=== PATIENT | female | born 1930 | race Caucasian/White ===

== ENCOUNTER 2018-04-05 12:03 | Day surgery (SDC) | payer MEDICARE, BC ==
[~2018-04-05 12:03] MED LIST: GLYCOPYRROLATE 1 MG/5 ML SYRINGE IV PUSH; LIDOCAINE HCL 1% PF 5 ML SYRINGE OTHER; METOPROLOL TARTRATE 5 MG/5 ML VIAL IV; NEOSTIGMINE 5 MG/5 ML SYRINGE IV PUSH; ONDANSETRON HCL 4 MG/2 ML VIAL IV; PHENYLEPH/NS 1000 MCG/10 ML SYR IV; PROPOFOL 200 MG/20 ML AMP IV; ROCURONIUM INJ 50 MG/5 ML SYRINGE IV PUSH; ePHEDrine/NS 25 MG/5 ML SYRINGE IV
[2018-04-05] MEDS ORDERED: HEPARIN-NS/PF FLUSH BAG 2,000 ML IV FLUSH (12:28)
[2018-04-05] MEDS ORDERED: CHLORHEXIDINE GLUCONATE 2 % 1 PACK (2 CLOTHS) TOPICAL (13:30)
[2018-04-05] MEDS ORDERED: POVIDONE IODINE 5% (ANTISEPSIS KIT) 4 APPLICATIONS EACH NARE (13:30)
[2018-04-05] MEDS: LEVOFLOXACIN 500 MG PREMIX INJ 100 ML IV (13:30)
[2018-04-05] MEDS ORDERED: INSULIN HUMAN REGULAR 1,000 UNITS/10 ML VIAL SQ (13:30)
[2018-04-05] MEDS ORDERED: SODIUM CHLORID 0.9% 500 ML IV (13:30)
[2018-04-05] MEDS ORDERED: LACTATED RINGER'S 1000 ML IV (13:30)
[2018-04-05] MEDS ORDERED: METOPROLOL TARTRATE 25 MG TAB PO (13:30)
[2018-04-05] MEDS ORDERED: LORazepam 1 MG TAB SL (13:30)
[2018-04-05] MEDS ORDERED: ISOPROTERENOL INJ PREMIX 50 ML IV (13:53)
[2018-04-05] MEDS ORDERED: HEPARIN SODIUM - IV 10,000 UNITS/10 ML VIAL (13:53)
[2018-04-05] MEDS ORDERED: HEPARIN-D5W 25,000 U/250 ML 250 ML (13:53)
[2018-04-05 14:15] LABS: AUTOMATED NEUTROPHIL # 4.6 TH/MM3 (1.8-7.7); BASOPHIL # 0.1 TH/MM3 (0-0.2); EOSINOPHIL # 0.2 TH/MM3 (0-0.4); EOSINOPHIL % 2.1 % (0.0-4.0); HEMATOCRIT 38.3 % (35.0-46.0); HEMO FLAGS DIFF FINAL; HEMOGLOBIN 12.8 GM/DL (11.6-15.3); LYMPH % 25.1 % (9.0-44.0); LYMPHOCYTE # 1.8 TH/MM3 (1.0-4.8); MEAN CELL VOLUME 95.6 FL (80.0-100.0); MEAN CORPUSCULAR HEMOGLOBIN 32.1 PG (27.0-34.0); MEAN CORPUSCULAR HGB CONC 33.6 % (32.0-36.0); MEAN PLATELET VOLUME 9.3 FL (7.0-11.0); MONO % 7.8 % (0.0-8.0); MONOCYTE # 0.6 TH/MM3 (0-0.9); PLATELET COUNT 231 TH/MM3 (150-450); RED CELL DISTRIBUTION WIDTH 13.9 % (11.6-17.2); WHITE BLOOD COUNT 7.2 TH/MM3 (4.0-11.0)
[2018-04-05 14:31] LABS: PROTHROMBIN TIME - PATIENT 10.4 SEC (9.8-11.6)
[2018-04-05 14:35] LABS: ANION GAP 6 MEQ/L (5-15); BICARBONATE 26.7 MEQ/L (21.0-32.0); BLOOD UREA NITROGEN 22 MG/DL (7-18); CHLORIDE 108 MEQ/L (98-107); CREATININE 1.29 MG/DL (0.50-1.00); GLOMERULAR FILTRATION RATE 39 ML/MIN (>89); GLUCOSE,RANDOM 85 MG/DL (74-106); SODIUM (NA) 141 MEQ/L (136-145)
[2018-04-05] MEDS ORDERED: HYDROCORTISONE SOD SUCCINATE 100 MG VIAL (15:08)
[2018-04-05] MEDS ORDERED: ONDANSETRON HCL 4 MG/2 ML VIAL IV PUSH (16:30)
[2018-04-05] MEDS ORDERED: oxyCODONE/ACETAMINOPHEN 5 MG/325 MG TAB PO (16:30)
[2018-04-05] MEDS ORDERED: LIDOCAINE HCL 1% 50 ML VIAL INFIL (16:30)
[2018-04-05] MEDS ORDERED: ATROPINE SULFATE 1 MG/ML VIAL IV PUSH (16:30)
[2018-04-05] MEDS ORDERED: SODIUM CHLOR 0.9% 250 ML INJ 250 ML IV (16:30)
[2018-04-05] MEDS ORDERED: BACITRACIN OINT 0.9 GM PKT TOP (16:30)
[2018-04-05] MEDS ORDERED: PILL SPLITTER OTHER (17:00)
[2018-04-05] MEDS ORDERED: DO NOT ADM ANY ANTICOAGULANT DRUGS (17:11)
[2018-04-05] MEDS: LORazepam 2 MG/ML VIAL IV PUSH (17:45)
[2018-04-05] MEDS ORDERED: HYDROXYCHLOROQUINE SULFATE 200 MG TAB PO (21:00)
[2018-04-05] MEDS: METOPROLOL TARTRATE 25 MG TAB PO (21:00)
[2018-04-06 05:05] LABS: APTT (PATIENT) 24.5 SEC (24.3-30.1); INTERNATIONAL NORMALIZED RATIO 1.1 RATIO; PROTHROMBIN TIME - PATIENT 10.9 SEC (9.8-11.6)
[2018-04-06] MEDS: SODIUM CHLORID 0.9% 500 ML INJ 500 ML IV (06:10)
[2018-04-06] MEDS: RIVAROXABAN 15 MG TAB PO (08:30)
[2018-04-06] MEDS: amLODIPine BESYLATE 5 MG TAB PO (08:30)
[2018-04-06] MEDS: predniSONE 5 MG TAB PO (08:46)
[2018-04-06] MEDS: METOPROLOL TARTRATE 25 MG TAB PO (08:46)
[2018-04-06] MEDS ORDERED: PREDNISONE 2.5 MG PO (09:00)
== END 2018-04-06 09:41 | disposition home or self-care (01) ==
LOC: HDOC 12:03 → HDIC 12:03 → HCVI 21:44
DX: I48.91 Unspecified atrial fibrillation (principal); R00.2 Palpitations; I10 Essential (primary) hypertension; Z01.818 Encounter for other preprocedural examination; Z01.810 Encounter for preprocedural cardiovascular examination
CPT/HCPCS: 00537; 80048; 85002; 85002-91; 85025; 85610; 85730; 86850; 86900; 86901; 93005; 93312; 93320; 93325; 93613; 93623; 93656; 93662

== ENCOUNTER 2018-04-25 19:15 | Emergency (ER) | payer MEDICARE, BC ==
[~2018-04-25 19:15] MED LIST changes: +AMLO5TAB2 PO; -GLYCOPYRROLATE 1 MG/5 ML SYRINGE IV PUSH; +HYDR200T3 PO; -LIDOCAINE HCL 1% PF 5 ML SYRINGE OTHER; +METO25TA3 PO; -METOPROLOL TARTRATE 5 MG/5 ML VIAL IV; -NEOSTIGMINE 5 MG/5 ML SYRINGE IV PUSH; -ONDANSETRON HCL 4 MG/2 ML VIAL IV; -PHENYLEPH/NS 1000 MCG/10 ML SYR IV; +PRED2.5T PO; -PROPOFOL 200 MG/20 ML AMP IV; -ROCURONIUM INJ 50 MG/5 ML SYRINGE IV PUSH; +XARE15TA PO; -ePHEDrine/NS 25 MG/5 ML SYRINGE IV
[2018-04-25 19:17] VITALS: BP 190/79; PULSE 84; RESP 18; TEMP 98.4; O2SAT 98
--- NOTE | 2018-04-25 19:36 | PD ---
HPI Chief Complaint: General Weakness Time Seen by Provider: 19:25 Travel History International Travel<30 days: No Contact w/Intl Traveler<30days: No Traveled to known affect area: No History of Present Illness HPI 87-year-old female with history of A. fib status post ablation 3 weeks ago on Xarelto, PMR on Plaquenil, here with her son and daughter for evaluation of generalized weakness. Symptoms started 3 days ago. At that time the patient was evaluated in the emergency department at [facility] and had an apparently normal workup that consisted of blood work, and a CT of her head. Patient reports that her symptoms are worsening and consists of generalized weakness with intermittent shakiness. She had a nosebleed yesterday. No fevers or chills. She has had a slight nonproductive cough. No chest pain or dyspnea. No abdominal pain. No melena or hematochezia. No urinary symptoms. PFSH Past Medical History Cancer: Yes (BREAST) Cardiovascular Problems: Yes (A-FIB) Chest Pain: No Diabetes: No Diminished Hearing: No Gastrointestinal Disorders: No Glaucoma: No Hiatal Hernia: No Hypertension: Yes Respiratory: No Integumentary: No Immunizations Current: Yes Radiation Therapy: Yes (HX) Thyroid Disease: No Past Surgical History Cardiac Surgery: Yes (ABALATION) Cholecystectomy: Yes Gynecologic Surgery: Yes (LUMPECTOMY LEFT) Social History Alcohol Use: No Tobacco Use: No Substance Use: No Allergies-Medications (Allergen,Severity, Reaction): Coded Allergies: benazepril (Unverified Allergy, Unknown, 04/05/18) captopril (Unverified Allergy, Unknown, 04/05/18) cefepime (Unverified Allergy, Unknown, 04/05/18) ceftaroline fosamil (Unverified Allergy, Unknown, 04/05/18) codeine (Unverified Allergy, Unknown, 04/05/18) enalaprilat (Unverified Allergy, Unknown, 04/05/18) fosinopril (Unverified Allergy, Unknown, 04/05/18) lisinopril (Unverified Allergy, Unknown, 04/05/18) meperidine (Unverified Allergy, Unknown, 04/05/18) morphine (Unverified Allergy, Unknown, 04/05/18) oxycodone (Unverified Allergy, Unknown, 04/05/18) pentazocine (Unverified Allergy, Unknown, 04/05/18) quinapril (Unverified Allergy, Unknown, 04/05/18) Reported Meds & Prescriptions Reported Meds & Active Scripts Active Reported Prednisone 1 Mg Tab 0.5 Mg PO DAILY Clonazepam 0.5 Mg Tab 0.5 Mg PO DAILY Xarelto (Rivaroxaban) 15 Mg Tab 15 Mg PO DAILY Metoprolol Tartrate 25 Mg Tab 25 Mg PO BID Hydroxychloroquine (Hydroxychloroquine Sulfate) 200 Mg Tab 400 Mg PO BID Takw with food Amlodipine (Amlodipine Besylate) 5 Mg Tab 5 Mg PO DAILY Review of Systems Except as stated in HPI: all other systems reviewed are Neg Physical Exam Narrative GENERAL: Well-developed, well-nourished, awake, alert, no apparent distress. SKIN: Focused skin assessment warm/dry. HEAD: Atraumatic. Normocephalic. EYES: Pupils equal and round. No scleral icterus. No injection or drainage. ENT: Mucous membranes pink and moist. NECK: Trachea midline. No JVD. CARDIOVASCULAR: Regular rate and rhythm. RESPIRATORY: No accessory muscle use. Clear to auscultation. Breath sounds equal bilaterally. GASTROINTESTINAL: Abdomen soft, non-tender, nondistended. MUSCULOSKELETAL: No obvious deformities. No clubbing. No cyanosis. No edema. NEUROLOGICAL: Awake and alert. No obvious cranial nerve deficits. Motor grossly within normal limits. Normal speech. No focal deficits. PSYCHIATRIC: Appropriate mood and affect; insight and judgment normal. Data Data Last Documented VS Vital Signs Date Time Temp Pulse Resp B/P (MAP) Pulse Ox O2 Delivery O2 Flow Rate FiO2 04/25/18 19:55 Room Air 04/25/18 19:55 85 14 174/72 (106) 99 04/25/18 19:17 98.4 Orders Orders Complete Blood Count With Diff (04/25/18 19:32) Comprehensive Metabolic Panel (04/25/18 19:32) Prothrombin Time / Inr (Pt) (04/25/18 19:32) Act Partial Throm Time (Ptt) (04/25/18 19:32) Urinalysis - C+S If Indicated (04/25/18 19:32) Iv Access Insert/Monitor (04/25/18 19:32) Ecg Monitoring (04/25/18 19:32) Oximetry (04/25/18 19:32) Sodium Chloride 0.9% Flush (Ns Flush) (04/25/18 19:45) Electrocardiogram (04/25/18 ) Chest, Single Ap (04/25/18 ) Cath For Specimen (04/25/18 19:32) C-Reactive Protein (Crp) (04/25/18 19:32) W[place]gren Sedimentation Rate (04/25/18 19:32) Thyroid Stimulating Hormone (04/25/18 19:32) Free Thyroxine (T4) (04/25/18 19:32) Psych Screen (04/25/18 21:18) Labs Laboratory Tests Test 04/25/18 19:50 White Blood Count 7.0 TH/MM3 Red Blood Count 3.94 MIL/MM3 Hemoglobin 12.4 GM/DL Hematocrit 36.6 % Mean Corpuscular Volume 93.0 FL Mean Corpuscular Hemoglobin 31.4 PG Mean Corpuscular Hemoglobin Concent 33.8 % Red Cell Distribution Width 13.6 % Platelet Count 286 TH/MM3 Mean Platelet Volume 8.9 FL Neutrophils (%) (Auto) 63.4 % Lymphocytes (%) (Auto) 24.1 % Monocytes (%) (Auto) 8.5 % Eosinophils (%) (Auto) 3.1 % Basophils (%) (Auto) 0.9 % Neutrophils # (Auto) 4.5 TH/MM3 Lymphocytes # (Auto) 1.7 TH/MM3 Monocytes # (Auto) 0.6 TH/MM3 Eosinophils # (Auto) 0.2 TH/MM3 Basophils # (Auto) 0.1 TH/MM3 CBC Comment DIFF FINAL Differential Comment Erythrocyte Sedimentation Rate 25 mm/hr Prothrombin Time 11.3 SEC Prothromb Time International Ratio 1.1 RATIO Activated Partial Thromboplast Time 30.6 SEC Urine Color LIGHT-YELLOW Urine Turbidity CLEAR Urine pH 5.5 Urine Specific [place] 1.007 Urine Protein NEG mg/dL Urine Glucose (UA) NEG mg/dL Urine Ketones NEG mg/dL Urine Occult Blood NEG Urine Nitrite NEG Urine Bilirubin NEG Urine Urobilinogen LESS THAN 2.0 MG/DL Urine Leukocyte Esterase NEG Urine RBC LESS THAN 1 /hpf Urine WBC LESS THAN 1 /hpf Urine Mucus FEW /lpf Microscopic Urinalysis Comment CULT NOT INDICATED Blood Urea Nitrogen 21 MG/DL Creatinine 1.03 MG/DL Random Glucose 101 MG/DL Total Protein 7.0 GM/DL Albumin 3.4 GM/DL Calcium Level 8.8 MG/DL Alkaline Phosphatase 75 U/L Aspartate Amino Transf (AST/SGOT) 15 U/L Alanine Aminotransferase (ALT/SGPT) 21 U/L Total Bilirubin 0.3 MG/DL Sodium Level 140 MEQ/L Potassium Level 3.4 MEQ/L Chloride Level 104 MEQ/L Carbon Dioxide Level 24.9 MEQ/L Anion Gap 11 MEQ/L Estimat Glomerular Filtration Rate 51 ML/MIN C-Reactive Protein 1.24 MG/DL Free Thyroxine 0.94 NG/DL Thyroid Stimulating Hormone 3rd Gen 2.910 uIU/ML MDM Medical Decision Making Medical Screen Exam Complete: Yes Emergency Medical Condition: Yes Interpretation(s) EKG: Sinus, rate 81, normal axis, first-degree AV block, occasional supraventricular premature complexes, no acute ischemic abnormality. Differential Diagnosis Anemia, hypothyroidism, metabolic abnormality, UTI, Narrative Course Vital signs reviewed. CBC: WBC 7, hemoglobin 12.4, hematocrit 36.6, platelets 286. CMP is essentially unremarkable. TSH is 2.91. CRP is 1.24. ESR is 25. UA is not suggestive of UTI. Chest x-ray: Cardiomegaly. Minimal basilar atelectasis. The patient and the patient's family were made aware of all findings. They tell me that she has not been acting like herself lately and has had episodes of crying. They believe she might have suicidal thoughts at times. She states that at times she does not want to go on anymore. She has a grandson who committed suicide a couple of months ago. They are agreeable to a psychiatric screen. 10:40 PM: The patient was evaluated by the psychiatric screener and was offered admission to psychiatry for treatment of depression. The patient declined this , stating that she would rather be treated as an outpatient. Patient's son and daughter at the bedside and are agreeable with this plan. They will be given information for outpatient psychiatric treatment. They will also follow-up with her primary care physician in 2 days on Wednesday. Diagnosis Primary Impression: Generalized weakness Referrals: Primary Care Physician 2 days Additional Instructions: Follow-up with your primary care physician in 2 days. Return to the emergency department for worsening symptoms or any other concerns. Disposition: 01 DISCHARGE HOME Condition: Stable Otilio Lozano MD April 25, 2018 19:36
[2018-04-25] MEDS ORDERED: SODIUM CHLORIDE 0.9% FLUSH 10 ML FLUSH IV FLUSH PRN (19:45)
[2018-04-25 19:55] VITALS: BP 174/72; PULSE 85; RESP 14; O2SAT 99
--- NOTE | 2018-04-25 20:11 | RADRPT ---
EXAM DATE: 04/25/2018 8:01 PM EDT AGE/SEX: 87 years / Female INDICATIONS: General weakness. CLINICAL DATA: This is the patient's initial encounter. Patient reports that signs and symptoms have been present for 3 days and indicates a pain score of 0/10. MEDICAL/SURGICAL HISTORY: Hypertension. Carcinoma, breast. Afib. . Left lumpectomy. Ablation . COMPARISON: No prior [facility] exams available for comparison. FINDINGS: Cardiomegaly present. Tortuous aorta. Minimal basilar atelectasis. Surgical clips in the left chest w all. No pneumothorax or effusion. CONCLUSION: Cardiomegaly. Minimal basilar atelectasis. Electronically signed by: Javier Mabry MD 04/25/2018 8:10 PM EDT
[2018-04-25] MEDS ORDERED: CLON0.5T PO (20:15)
[2018-04-25] MEDS ORDERED: PRED1 PO (20:15)
[2018-04-25 20:23] LABS: AUTOMATED NEUTROPHIL # 4.5 TH/MM3 (1.8-7.7); BASOPHIL # 0.1 TH/MM3 (0-0.2); BASOPHIL % 0.9 % (0.0-2.0); EOSINOPHIL # 0.2 TH/MM3 (0-0.4); EOSINOPHIL % 3.1 % (0.0-4.0); HEMATOCRIT 36.6 % (35.0-46.0); HEMOGLOBIN 12.4 GM/DL (11.6-15.3); LYMPH % 24.1 % (9.0-44.0); LYMPHOCYTE # 1.7 TH/MM3 (1.0-4.8); MEAN CORPUSCULAR HEMOGLOBIN 31.4 PG (27.0-34.0); MEAN CORPUSCULAR HGB CONC 33.8 % (32.0-36.0); MEAN PLATELET VOLUME 8.9 FL (7.0-11.0); MONO % 8.5 % (0.0-8.0); MONOCYTE # 0.6 TH/MM3 (0-0.9); NEUT % 63.4 % (16.0-70.0); PLATELET COUNT 286 TH/MM3 (150-450); RED BLOOD COUNT 3.94 MIL/MM3 (4.00-5.30); RED CELL DISTRIBUTION WIDTH 13.6 % (11.6-17.2)
[2018-04-25 20:33] LABS: BILIRUBIN, URINE NEG (NEG); BLOOD, URINE NEG (NEG); GLUCOSE,URINE NEG (NEG); KETONE, URINE NEG (NEG); MUCUS URINE FEW /lpf (OCC); NITRITE,URINE NEG (NEG); PH, URINE 5.5 (5.0-8.5); URINE COLOR LIGHT-YELLOW (YELLW/STRAW); URINE LEUKOCYTE ESTERASE NEG (NEG)
[2018-04-25 20:36] LABS: INTERNATIONAL NORMALIZED RATIO 1.1 RATIO; PROTHROMBIN TIME - PATIENT 11.3 SEC (9.8-11.6)
[2018-04-25 20:42] LABS: ALBUMIN 3.4 GM/DL (3.4-5.0); ALT (GPT) 21 U/L (10-53); AST (GOT) 15 U/L (15-37); BICARBONATE 24.9 MEQ/L (21.0-32.0); BLOOD UREA NITROGEN 21 MG/DL (7-18); C-REACTIVE PROTEIN 1.24 MG/DL (0.00-0.30); CALCIUM 8.8 MG/DL (8.5-10.1); CHLORIDE 104 MEQ/L (98-107); CREATININE 1.03 MG/DL (0.50-1.00); GLOMERULAR FILTRATION RATE 51 ML/MIN (>89); GLUCOSE,RANDOM 101 MG/DL (74-106); SODIUM (NA) 140 MEQ/L (136-145)
[2018-04-25 20:59] LABS: ALKALINE PHOSPHATASE 75 U/L (45-117); FREE T4 0.94 NG/DL (0.76-1.46); TOTAL BILIRUBIN ADULT 0.3 MG/DL (0.2-1.0)
--- NOTE | 2018-04-26 14:09 | EKG ---
Date Performed: 04/25/2018 Time Performed: 19:50:45 PTAGE: 87 years EKG: Sinus rhythm WITH FIRST DEGREE AV BLOCK WITH OCCASIONAL SUPRAVENTRICULAR PREMATURE COMPLEXES ABNORMAL ECG PREVIOUS TRACING : 04/06/2018 04.38 Since the previous tracing, no significant change noted DOCTOR: Santino Quinonez Interpretating Date/Time 04/26/2018 14:03:43
== END 2018-04-25 23:04 | disposition home or self-care (01) ==
LOC: NEPC 19:15
DX: R53.1 Weakness (principal); R94.31 Abnormal electrocardiogram [ECG] [EKG]; R04.0 Epistaxis; I48.91 Unspecified atrial fibrillation; I10 Essential (primary) hypertension; F32.9 Major depressive disorder, single episode, unspecified; Z98.890 Other specified postprocedural states; Z85.3 Personal history of malignant neoplasm of breast
CPT/HCPCS: 71045; 80053; 81001; 84439; 84443; 85025; 85610; 85652; 85730; 86140; 93005; 99285; P9612